=== PATIENT | female | born 1980 | race Caucasian/White ===

== ENCOUNTER → 2020-01-28 | Outpatient (CLI) | payer BC ==
--- NOTE | 2020-01-29 03:10 | REP ---
INDICATION: POST FOREIGN BODY REMOVAL COMPARISON: None. TECHNIQUE: AP, lateral, bilateral oblique views left 2nd digit. FINDINGS: The osseous structures and joint spaces are intact and normal. The previously noted foreign body has been removed. There is no evidence for acute fracture or dislocation. Surrounding soft tissues are grossly unremarkable. No subcutaneous emphysema or residual radiodense foreign body. IMPRESSION: Foreign body has been removed.. No acute fracture or dislocation. <Electronically signed by Behzad Fine > 01/29/20 0500
== END ==
LOC: M WUC 15:52
PROVIDERS: ATTEND Physician Assistant
DX: Z09 Encounter for follow-up examination after completed treatment for conditions other than malignant neoplasm (principal); Z87.2 Personal history of diseases of the skin and subcutaneous tissue

== ENCOUNTER → 2020-01-28 | Outpatient (CLI) | payer BC ==
--- NOTE | 2020-01-29 03:09 | REP ---
INDICATION: FB INDEX FINGER COMPARISON: None. TECHNIQUE: AP, lateral, bilateral oblique views left 2nd digit. FINDINGS: There is a foreign body consistent with staple in the soft tissues overlying the region of the distal interphalangeal joint. While no definite bony involvement is appreciated, subtle osseous involvement primarily involving the base of the distal phalanx cannot be excluded based on given images. IMPRESSION: Foreign body consistent with staple as described above. <Electronically signed by Behzad Fine > 01/29/20 0308
== END ==
LOC: M WUC 15:29
PROVIDERS: ATTEND Physician Assistant
DX: S60.451A Superficial foreign body of left index finger, initial encounter (principal); W45.8XXA Other foreign body or object entering through skin, initial encounter; Y92.9 Unspecified place or not applicable; Y99.8 Other external cause status; Y93.9 Activity, unspecified

== ENCOUNTER → 2020-09-09 | Outpatient (CLI) | payer BC ==
--- NOTE | 2020-09-09 21:38 | REPVR ---
PROCEDURE INFORMATION: Exam: MR Lumbar Spine Without Contrast Exam date and time: 09/09/2020 8:20 PM Age: 40 years old Clinical indication: Low back pain; Patient HX: Lbp; Additional info: Radiculopathy TECHNIQUE: Imaging protocol: Multiplanar magnetic resonance images of the lumbar spine without intravenous contrast. COMPARISON: No relevant prior studies available. FINDINGS: Vertebrae: Unremarkable. Loss of normal T2 signal within the discs at L2-L3, L3-L4 and L5-S1 reflecting disc desiccation. Spinal canal is congenitally small. Spinal cord: Normal signal. No cord compression. Conus is posterior to L1. L1-L2: No significant disc disease. No significant spinal canal stenosis. No neural foraminal stenosis. L2-L3: Narrowed intervertebral disc space with broad-based posterior disc bulge.. Narrowed lateral recesses bilaterally. Moderate central stenosis.. . No neural foraminal stenosis. L3-L4: Circumferential annulus bulge. Tiny posterior central disc bulge slightly to the right of midline. Mild ligamentous hypertrophy.. No significant spinal canal stenosis. No neural foraminal stenosis. L4-L5: No significant disc disease. Mild ligamentous hypertrophy No significant spinal canal stenosis. No neural foraminal stenosis. L5-S1: Narrowing of the intervertebral disc space with Modic type 1 endplate signal changes. Circumferential annulus bulge. Narrowed lateral recesses bilaterally and moderate bilateral foraminal stenosis. Ligamentous hypertrophy. No significant spinal canal stenosis. Soft tissues: Unremarkable. IMPRESSION: 1. Congenitally small canal with degenerative disc disease and facet arthropathy. 2. 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 3. Narrowed lateral recesses and/or foraminal stenosis at L2-L3 and L5-S1 Electronically signed by: Judi Adams On 09/09/2020 21:37:39 PM
== END ==
LOC: M RAD 17:49
PROVIDERS: ATTEND Orthopaedic Surgery
DX: M48.061 Spinal stenosis, lumbar region without neurogenic claudication (principal); M51.16 Intervertebral disc disorders with radiculopathy, lumbar region

== ENCOUNTER → 2022-02-08 | Outpatient (REF) | payer BC | LOC: M LAB REF 12:41 | PROVIDERS: ATTEND Obstetrics & Gynecology | DX: R30.0 Dysuria (principal) ==

== ENCOUNTER → 2023-07-05 | Outpatient (REF) | payer BC ==
[2023-07-05 13:55] LABS: HEMATOCRIT 41.7 % (36.0-47.0); HEMOGLOBIN 13.4 g/dl (12.0-15.5); MEAN CORPUSCULAR HEMOGLOBIN 29.4 pg (27.0-33.0); MEAN CORPUSCULAR HGB CONC 32.1 g/dl (32.0-36.5); MEAN CORPUSCULAR VOLUME 91.4 fl (80.0-96.0); PLATELET COUNT, AUTOMATED 389 10^3/uL (150-450); RED BLOOD COUNT 4.56 10^6/uL (4.00-5.40); WHITE BLOOD COUNT 11.7 10^3/uL (4.0-10.0)
[2023-07-05 14:22] LABS: ALBUMIN 3.3 G/DL (3.2-5.2); ALKALINE PHOSPHATASE 70 U/L (46-116); ALT/SGPT 20 U/L (7.0-40); AST/SGOT 11 U/L (<34); BILIRUBIN,TOTAL 0.3 MG/DL (0.3-1.2); BLOOD UREA NITROGEN 19 MG/DL (9-23); CALCIUM LEVEL 9.4 MG/DL (8.5-10.1); CARBON DIOXIDE LEVEL 28 MMOL/L (20-31); CHLORIDE LEVEL 104 MMOL/L (98-107); CHOLESTEROL LEVEL 160 MG/DL (<200); CHOLESTEROL RISK RATIO 3.82 (<5); GLOMERULAR FILTRATION RATE > 60.0 (>58); GLUCOSE, FASTING 78 MG/DL (60-100); HDL CHOLESTEROL 41.8 MG/DL (>40); LDL CHOLESTEROL 88.2 MG/DL (<100); NON-HDL-C 118.2 MG/DL; POTASSIUM SERUM 4.7 MMOL/L (3.5-5.1); SODIUM LEVEL 136 MMOL/L (136-145); TOTAL PROTEIN 6.6 G/DL (5.7-8.2); TRIGLYCERIDES LEVEL 150 MG/DL (<150)
[2023-07-05 14:24] LABS: FREE T4 0.86 NG/DL (0.89-1.76)
== END ==
LOC: M LABWUC 13:02
PROVIDERS: ATTEND Registered Nurse
DX: E55.9 Vitamin D deficiency, unspecified (principal); Z13.220 Encounter for screening for lipoid disorders